=== PATIENT | male | born 1990 | race Caucasian/White ===

== ENCOUNTER → 2018-03-24 | Outpatient (CLI) | payer OTHER ==
--- NOTE | 2018-03-24 23:11 | MR ---
MRI CERVICAL SPINE: MR scan brain CLINICAL HISTORY: Headaches and neck pain TECHNIQUE: Multiplanar, multisequence imaging of the cervical spine and brain is performed without co ntrast. COMPARISON: FINDINGS: Ventricles and sulci appear normal. There is no mass effect nor midline shift. There is no sign of intracranial hemorrhage. Carpenter-white matter structures have normal signal pattern. There is no evidence of cerebral edema. There is mucosal thickening in the left maxillary sinus. Corpus callosum appears normal. Brainstem is intact. Sella turcica appears normal. There is some mucosal thickening in the frontal and ethmoid sinuses. The cervical vertebra have normal spacing and alignment. Cervical spinal cord appears normal. There i s no cervical disc herniation. There is no spinal stenosis. I see no bony destructive process. IMPRESSION: Sinusitis. Negative MR scan of the brain. Negative MR scan cervical spine.
== END | disposition home or self-care (01) ==
LOC: RADMRIMAIN 20:46
PROVIDERS: ATTEND Psychiatry & Neurology Neurology
DX: J32.9 Chronic sinusitis, unspecified (principal); M54.2 Cervicalgia
CPT/HCPCS: 70551; 72141

== ENCOUNTER → 2024-04-24 | Outpatient (CLI) | payer OTHER | END | disposition home or self-care (01) | LOC: LABPRL 08:11 | PROVIDERS: ATTEND Nurse Practitioner Family | DX: Z00.00 Encounter for general adult medical examination without abnormal findings (principal); G43.011 Migraine without aura, intractable, with status migrainosus; Z68.22 Body mass index [BMI] 22.0-22.9, adult | CPT/HCPCS: 80053; 80061; 82306; 83036; 84443; 85027 ==